=== PATIENT | male | born 1960 | race Caucasian/White ===

== ENCOUNTER 2024-04-09 10:41 | Emergency (ER) | payer OTHER, SELFPAY ==
--- NOTE | ~2024-04-09 | XR_ITS ---
Left wrist Technique: PA and lateral views were obtained. Clinical History: Injury Findings: No acute fracture or dislocation is seen. 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 There is chronic appearing irregularity of the distal radius at the articul ation of the scaphoid, possibly posttraumatic in nature versus developing degenerative change. Joint spaces otherwise are preserved. There is amorphous mineralization dorsal aspect of the wrist on later al view, nonspecific. Soft tissues are unremarkable. Impression: No acute fracture or dislocation seen. 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 Probable degenerative change or chronic posttraumatic change of the distal radius/radial scaphoid art iculation. Amorphous mineralization of the dorsal aspect of the second lateral view, just reflect chronic coverstitch binder ior neck change and/or osteophyte formation. Reviewed, dictated and finalized at location M. Impression: No acute fracture or dislocation seen. 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 Probable degenerative change or chronic posttraumatic change of the distal radi us/radial scaphoid articulation. Amorphous mineralization of the dorsal aspect of the second lateral view, just reflect chronic posterior neck change and/or osteophyte formation.
--- NOTE | ~2024-04-09 | XR_ITS ---
Right Hand Technique: PA, oblique, and lateral views were obtained. Clinical History: First digit pain Findings: No acute fracture or dislocation is seen. There is severe degenerative change of the first metacarpophalangeal joint. There is moderate to advanced degenerative change of the second and third DIP joints.. Soft tissues are unremarkable. 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 Additional degenerative changes, as above. Reviewed, dictated and finalized at location M. 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 Additional degenerative changes, as above.
--- NOTE | 2024-04-09 10:48 | ED.UPPEXIN ---
HPI - Extremity Injury (Upper) General Chief Complaint: Extremity Injury, Upper Stated Complaint: Injury to Right Hand /Left Wrist Time Seen by Provider: 04/09/24 11:20 Source: patient and RN notes reviewed Mode of arrival: ambulatory Limitations: no limitations History of Present Illness HPI narrative: 63-year-old male presents with concern for injury to bilateral upper extremities. Reports on Sunday was using a wrench to tighten a bolt when his hand slipped causing pain at the base of his right 1st digit and pain in the left wrist. Reports since then the left wrist has become more painful, swollen, red. Reports he has been taking ibuprofen and Tylenol. Reports some nausea MD complaint: injury to: left (Wrist) and right (Hand) Related Data Home Medications Medication Instructions Recorded Confirmed bupropion HCl 150 mg 24 hr tablet, mg PO 04/09/24 extended release metformin 500 mg tablet mg 04/09/24 omeprazole 04/09/24 propranolol 40 mg tablet mg 04/09/24 rosuvastatin 20 mg tablet mg 04/09/24 venlafaxine 75 mg capsule,extended mg PO 04/09/24 release 24 hr Allergies Allergy/AdvReac Type Severity Reaction Status Date / Time morphine AdvReac Intermediate Nausea and Verified 08/29/16 19:48 Vomiting seafood Allergy Unknown Uncoded 08/29/16 20:08 Review of Systems Review of Systems: CONSTITUTIONAL: Denies malaise, chills, sweats, or fever. SKIN: Denies rash or itching, open skin, laceration, abrasion MUSCULOSKELETAL: Reports pain in the 1st digit of the right hand. Reports generalized left hand, wrist pain, redness, swelling NEUROLOGIC: Denies numbness, weakness All systems reviewed & are unremarkable except as noted in HPI and below PMFSH Comments At time of signature, agree with nursing past medical, surgical, social and family history. There is no relevant family history pertinent to the presenting complaint Exam Narrative: GENERAL: Well-appearing, well-nourished, and in no acute distress. HEAD: Normocephalic, atraumatic. EYES: PERRLA, conjunctivae clear NECK: Supple. CHEST: Speaks in full sentences. No respiratory distress. HEART: Regular rate and rhythm. Normal and equal peripheral pulses. EXTREMITIES: Left hand and digits of hand have normal sensation. 4/5 strength with digit flexion, extension. Range of motion limited with flexion. No clubbing, cyanosis. Erythema, induration, edema noted to the dorsal hand, digits, wrist. General wrist tenderness. Skin intact. Normal digital cascade with flexion of fingers, median, ulnar and radial nerve intact. Normal sensation of each side of finger. Can perform 'okay' sign, 'cross over finger test of index and middle fingers' and 'thumbs up' sign. No scissoring. Normal thumb opposition. Good capillary refill and radial pulse. Distal capillary refill less than 3 seconds. Right hand and digits of hand have normal strength and sensation. 5/5 strength with digit flexion, extension. Range of motion grossly normal. No clubbing, cyanosis, or edema noted. Tenderness at the base of the 1st digit. Skin intact. Normal sensation of each side of finger. No scissoring. Normal thumb opposition. Good capillary refill and radial pulse. Distal capillary refill less than 3 seconds. SKIN: Warm, dry, no rash. NEURO: Alert and oriented x3. PSYCH: Normal mood and affect Course Course Emergency Course: Patient is aware of diagnosis, understands and agrees to treatment plan. Anticipatory guidance given. Patient agrees to follow-up as directed and is aware of reasons to seek care at the emergency department. Portions of this record may have been created with voice recognition software Level of Care: Express Care Visit Vital Signs Vital signs: Reviewed. MDM - Extremity Injury (Upper) MDM Narrative Medical decision making narrative: I evaluated this patient in the express care. History is obtained from patient who is an independent historian and physical exam was
[2024-04-09 10:58] VITALS: BP 130/68; PULSE 59; RESP 16; TEMP 36.6; O2SAT 99
[2024-04-09 11:25] VITALS: BP 130/68; PULSE 59; RESP 16; TEMP 36.6; O2SAT 99
== END 2024-04-09 12:12 | disposition home or self-care (01) ==
PROVIDERS: Emergency Provider Nurse Practitioner
DX: S63.91XA Sprain of unspecified part of right wrist and hand, initial encounter (principal); X58.XXXA Exposure to other specified factors, initial encounter; L03.114 Cellulitis of left upper limb; E78.00 Pure hypercholesterolemia, unspecified; I10 Essential (primary) hypertension; K21.9 Gastro-esophageal reflux disease without esophagitis; E11.9 Type 2 diabetes mellitus without complications
CPT/HCPCS: 73110; 73130; 99203; G0463

== ENCOUNTER 2024-04-18 14:07 | Emergency (ER) | payer OTHER, SELFPAY ==
--- NOTE | ~2024-04-18 | XR_ITS ---
EXAMINATION: XR chest 2V DATE: 04/18/2024 14:54 INDICATION: Syncope. TECHNIQUE: Frontal and lateral views of the chest were obtained. COMPARISON: Chest 2 views 08/29/2016 FINDINGS: There is mild atelectasis in the lower lung zones. No pleural effusion or pneumothorax. The heart size is normal. IMPRESSION: 1. Mild atelectasis in the lower lung zones. Reviewed, dictated and finalized at location A.
--- NOTE | ~2024-04-18 | CT_ITS ---
EXAMINATION: CT brain wo con DATE: 04/18/2024 14:50 INDICATION: Loss of consciousness. TECHNIQUE: Computed tomography (CT) of the head was performed without intravenous contrast. The mA wa s adjusted according to patient size. Iterative reconstruction technique was employed. The dose-lengt h product was 1135.00 mGy-cm. COMPARISON: None FINDINGS: There is no intracranial hemorrhage, acute infarction, or abnormal intracranial mass lesion . The ventricles are normal in size. There is mild mucosal thickening in the paranasal sinuses. The o rbits are normal. The mastoid air cells are normal. IMPRESSION: 1. Normal brain. Reviewed, dictated and finalized at location A. IMPRESSION: 1. Normal brain.
--- NOTE | 2024-04-18 14:14 | ECG_ITS ---
Test Date: 2024-04-18 14:28:23 Measurements Intervals Sharon Rate: 84 P: 101 NM: 151 QRS: 45 QRSD: 92 T: 135 QT: 392 QTc: 464 Interpretive Statements SINUS RHYTHM INCOMPLETE RIGHT BUNDLE BRANCH BLOCK BORDERLINE ST-T WAVE ABNORMALITY- AINF/LAT LEADS BASELINE ARTIFACT- I, III, AVR, AVL, AVF, V1-V6 BORDERLINE ECG No previous ECG available for comparison Electronically Signed On 04-18-2024 14:42:21 CDT by Lobo Birmingham D.O.
[2024-04-18 14:22] VITALS: BP 148/85; PULSE 94; RESP 16; TEMP 36.8; O2SAT 98
[2024-04-18 14:34] LABS: Basophils Absolute Auto 0.1 K/mm3 (0.0-0.1); Basophils Percent Auto 0.4 % (0.2-1.2); Eosinophils Percent Auto 0.2 % (0-4.4); Hematocrit 41.1 % (42.0-52.0); Hemoglobin 14.5 g/dL (14.0-18.0); Immature Granulocyte Absolute 0.04 K/mm3 (0.00-0.031); Immature Granulocyte Percent A 0.3 % (0-0.5); Lymphocytes Absolute Auto 3.34 K/mm3 (0.9-3.2); Lymphocytes Percent Auto 27.6 % (18.3-44.2); Mean Corpuscular HGB Conc 35.3 g/dl (32-36); Mean Corpuscular Hemoglobin 31.7 pg (26-34); Mean Corpuscular Volume 89.7 fl (80-100); Mean Platelet Volume 8.8 fl (7.4-10.4); Monocytes Absolute Auto 0.6 K/mm3 (0.1-0.6); Monocytes Percent Auto 5.1 % (2.6-8.5); Neutrophils Percent Auto 66.4 % (45.5-73.1); Platelet Count Result 259 k/mm3 (150-375); Red Blood Count 4.58 M/mm3 (4.6-6.20); Red Cell Distribution Width 13.2 % (11.5-14.5); White Blood Count 12.1 K/mm3 (4.5-10.0)
[2024-04-18 14:51] LABS: Alanine Aminotransferase 91 U/L (6-50); Albumin Level 4.5 g/dL (3.5-5.1); Alkaline Phosphatase 96 U/L (38-126); Anion Gap 22 mmol/L (4-12); Aspartate Amino Transferase 110 U/L (17-59); Bilirubin,Total 0.4 mg/dL (0.2-1.3); Blood Urea Nitrogen 16 mg/dL (9-20); Calcium 8.6 mg/dL (8.4-10.2); Carbon Dioxide 18 mmol/L (22-30); Chloride 103 mmol/L (98-107); Estimated CRCL calculation 104 ml/min; Estimated Glomerular Filt Rate > 60; Glucose 115 mg/dL (65-110); Potassium 3.5 mmol/L (3.4-5.0); Sodium 143 mmol/L (137-145)
[2024-04-18 14:52] LABS: Ethanol 267 mg/dL (<10)
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
[2024-04-18 16:34] VITALS: BP 131/81; PULSE 84
[2024-04-18 16:35] VITALS: BP 100/80; BP 137/82; PULSE 108; PULSE 88
[2024-04-18] MEDS: SODIUM CHLORIDE 0.9% IV 1,000 ML 999 ML IV CONT ×2 (16:46)
[2024-04-18 17:35] VITALS: BP 114/90; PULSE 80; RESP 16; TEMP 36.7; O2SAT 99
== END 2024-04-18 17:35 ==
PROVIDERS: Emergency Provider Emergency Medicine
DX: I95.1 Orthostatic hypotension (principal); I10 Essential (primary) hypertension; E78.00 Pure hypercholesterolemia, unspecified; F17.210 Nicotine dependence, cigarettes, uncomplicated; F10.129 Alcohol abuse with intoxication, unspecified; Y90.8 Blood alcohol level of 240 mg/100 ml or more; I45.10 Unspecified right bundle-branch block; R94.31 Abnormal electrocardiogram [ECG] [EKG]
CPT/HCPCS: 36415; 70450; 71046; 80053; 80307; 84484; 85025; 93005; 99284; J7030